=== PATIENT | female | born 1985 | race Caucasian/White ===

== ENCOUNTER 2020-11-24 15:31 | Emergency (ER) | payer MEDICAID ==
[~2020-11-24] VITALS: Ht 142.2 cm; Wt 65.9 kg
[~2020-11-24 15:31] MED LIST: CEFU250T87 PO; FERR-89 PO; LEVO25TA9 PO; METR500 PO; SENN8.6T20 PO
[2020-11-24 17:30] VITALS: BP 139/74
== END 2020-11-24 19:10 ==
LOC: EMS 15:32
DX: H60.92 Unspecified otitis externa, left ear (principal)
CPT/HCPCS: 99283; Z7502

== ENCOUNTER 2022-05-28 06:18 | Emergency (ER) | payer MEDICAID ==
[~2022-05-28] VITALS: Ht 144.8 cm; Wt 65.9 kg
[~2022-05-28 06:18] MED LIST changes: -FERR-89 PO; +FERR325T27 PO
[2022-05-28 06:19] VITALS: BP 137/69
[2022-05-28] MEDS ORDERED: PENI500T2 PO (06:24)
[2022-05-28] MEDS ORDERED: IBUP-1492 PO (06:24)
== END 2022-05-28 06:40 | disposition home or self-care (01) ==
LOC: EMS 06:20
DX: K13.79 Other lesions of oral mucosa (principal); K02.9 Dental caries, unspecified; Z98.890 Other specified postprocedural states
CPT/HCPCS: 99283; Z7502

== ENCOUNTER 2022-07-17 22:55 | Emergency (ER) | payer MEDICAID ==
[~2022-07-17] VITALS: Ht 142.2 cm; Wt 65.9 kg
[~2022-07-17 22:55] MED LIST changes: -CEFU250T87 PO; +IBUP-1492 PO; -METR500 PO; +PENI500T2 PO
[2022-07-17] MEDS ORDERED: PENI500T2 PO (23:56)
[2022-07-17] MEDS ORDERED: IBUP-45 PO (23:56)
[2022-07-17] MEDS ORDERED: ACET-2080 PO (23:56)
[2022-07-18] MEDS ORDERED: IBUPROFEN 600 MG TABLET PO ONE
[2022-07-18] MEDS ORDERED: ACETAMINOPHEN/CODEINE 300-30 MG TABLET PO ONE
[2022-07-18] MEDS ORDERED: CEPHALEXIN MONOHYDRATE 500 MG CAPSULE PO ONE
[2022-07-18 00:22] VITALS: BP 145/73
== END 2022-07-18 00:08 | disposition home or self-care (01) ==
LOC: EMS 22:57
DX: K08.89 Other specified disorders of teeth and supporting structures (principal); E05.90 Thyrotoxicosis, unspecified without thyrotoxic crisis or storm
CPT/HCPCS: 99284; Z7502; Z7610

== ENCOUNTER 2022-09-10 01:33 | Emergency (ER) | payer MEDICAID ==
[~2022-09-10] VITALS: Ht 142.2 cm; Wt 67.0 kg
[~2022-09-10 01:33] MED LIST changes: +ACET-2080 PO; +IBUP-45 PO
[2022-09-10 01:34] VITALS: TEMP 98.4
[2022-09-10 02:00] VITALS: BP 124/71; PULSE 99; RESP 17
[2022-09-10] MEDS ORDERED: AMOX500C2 PO (02:20)
[2022-09-10] MEDS ORDERED: IBUP-1492 PO (02:20)
[2022-09-10] MEDS ORDERED: HYDROCODONE/ACETAMINOPHEN 5-325 MG TABLET PO ONE (02:30)
[2022-09-10] MEDS ORDERED: IBUPROFEN 600 MG TABLET PO ONE (02:30)
[2022-09-10] MEDS ORDERED: AMOXICILLIN TRIHYDRATE 250 MG CAPSULE PO ONE (02:30)
== END 2022-09-10 02:43 | disposition home or self-care (01) ==
LOC: EMS 01:34
DX: K02.9 Dental caries, unspecified (principal); Z98.890 Other specified postprocedural states
CPT/HCPCS: 99284; Z7502; Z7610

== ENCOUNTER 2023-07-20 23:42 | Emergency (ER) | payer MEDICAID ==
[~2023-07-20] VITALS: Ht 142.2 cm; Wt 71.4 kg
[~2023-07-20 23:42] MED LIST changes: +AMOX500C2 PO
[2023-07-20 23:47] VITALS: TEMP 98.4
[2023-07-21 01:03] VITALS: BP 153/83; PULSE 91; RESP 18
[2023-07-21] MEDS: AMOXICILLIN TRIHYDRATE 250 MG CAPSULE PO ONE (01:43)
[2023-07-21] MEDS: IBUPROFEN 800 MG TABLET PO ONE (01:43)
== END 2023-07-21 02:04 | disposition home or self-care (01) ==
LOC: EMS 23:43
DX: K08.89 Other specified disorders of teeth and supporting structures (principal)
CPT/HCPCS: 99283

== ENCOUNTER 2024-08-19 08:19 | Emergency (ER) | payer MEDICAID ==
[~2024-08-19] VITALS: Ht 149.9 cm; Wt 75.0 kg
[2024-08-19 08:20] VITALS: TEMP 98
[2024-08-19 08:30] VITALS: BP 137/91; PULSE 90; RESP 18; O2SAT 100
== END 2024-08-19 08:45 | disposition home or self-care (01) ==
LOC: EMS 08:21
DX: T18.108A Unspecified foreign body in esophagus causing other injury, initial encounter (principal); W44.9XXA Unspecified foreign body entering into or through a natural orifice, initial encounter; Y93.89 Activity, other specified; Y92.89 Other specified places as the place of occurrence of the external cause; Y99.8 Other external cause status
CPT/HCPCS: 99282; Z7502

== ENCOUNTER 2024-08-23 23:59 | Emergency (ER) | payer MEDICAID ==
[~2024-08-23] VITALS: Ht 142.2 cm; Wt 70.0 kg
[2024-08-24 00:06] VITALS: BP 137/71; PULSE 95; RESP 18; TEMP 97.7; O2SAT 100
[2024-08-24] MEDS: KETOROLAC TROMETHAMINE 30 MG/ML VIAL IM ONE (01:17)
[2024-08-24] MEDS ORDERED: AMOX250C4 PO (01:28)
[2024-08-24] MEDS ORDERED: TRAM50TA5 PO (01:28)
== END 2024-08-24 01:42 | disposition home or self-care (01) ==
LOC: EMS 08-24
DX: K02.9 Dental caries, unspecified (principal); K08.89 Other specified disorders of teeth and supporting structures; Z79.899 Other long term (current) drug therapy
CPT/HCPCS: 99283; 96372; J1885

== ENCOUNTER 2025-01-07 11:44 | Emergency (ER) | payer OTHER, MEDICAID ==
[~2025-01-07] VITALS: Ht 142.2 cm; Wt 6.8 kg
[~2025-01-07 11:44] MED LIST changes: +AMOX250C4 PO; +TRAM50TA5 PO
[2025-01-07 12:13] VITALS: TEMP 97.7
[2025-01-07] MEDS: ACETAMINOPHEN 500 MG TABLET PO ONE (13:24)
[2025-01-07] MEDS: IBUPROFEN 600 MG TABLET PO ONE (13:24)
[2025-01-07 14:09] VITALS: BP 124/74; PULSE 86; RESP 16; O2SAT 99
[2025-01-07] MEDS ORDERED: METH-659 PO (14:16)
[2025-01-07] MEDS ORDERED: IBUP-1554 PO (14:16)
== END 2025-01-07 14:42 | disposition home or self-care (01) ==
LOC: EMS 11:55
DX: S39.012A Strain of muscle, fascia and tendon of lower back, initial encounter (principal); S16.1XXA Strain of muscle, fascia and tendon at neck level, initial encounter; Z98.49 Cataract extraction status, unspecified eye; Z79.899 Other long term (current) drug therapy; V89.2XXA Person injured in unspecified motor-vehicle accident, traffic, initial encounter; Y93.89 Activity, other specified; Y92.410 Unspecified street and highway as the place of occurrence of the external cause; Y99.8 Other external cause status
CPT/HCPCS: 72040; 72070; 99284; Z7502; Z7610

== ENCOUNTER 2025-02-05 20:58 | Emergency (ER) | payer MEDICAID, OTHER ==
[~2025-02-05] VITALS: Ht 142.2 cm; Wt 67.3 kg
[~2025-02-05 20:58] MED LIST changes: -AMOX250C4 PO; -AMOX500C2 PO; -FERR325T27 PO; +IBUP-1554 PO; -IBUP-45 PO; -LEVO25TA9 PO; +METH-659 PO; -PENI500T2 PO; -SENN8.6T20 PO; -TRAM50TA5 PO
[2025-02-05 21:12] VITALS: BP 147/83; PULSE 100; RESP 14; TEMP 97.9; O2SAT 100
[2025-02-05] MEDS: HYDROCODONE/ACETAMINOPHEN 5-325 MG TABLET PO ONE (22:53)
[2025-02-05] MEDS: KETOROLAC TROMETHAMINE 30 MG/ML VIAL IM ONE (22:53)
[2025-02-05] MEDS ORDERED: HYDR-4072 PO (23:00)
== END 2025-02-05 23:30 | disposition home or self-care (01) ==
LOC: EMS 20:58
DX: K02.9 Dental caries, unspecified (principal); Z98.49 Cataract extraction status, unspecified eye; Z79.899 Other long term (current) drug therapy
CPT/HCPCS: 99283; 96372; J1885